=== PATIENT | female | born 1995 | race African-American/Black ===

== ENCOUNTER 2023-11-19 11:19 | Emergency (ER) | payer SELFPAY ==
[2023-11-19] MEDS: Ketorolac 60 MG/2 ML SDV IM ONE (12:19)
== END 2023-11-19 12:30 | disposition home or self-care (01) ==
LOC: JD.ED 11:19
DX: M54.41 Lumbago with sciatica, right side (principal)
CPT/HCPCS: 81025; 96372; 99284; J1885; 99283

== ENCOUNTER 2023-12-09 15:58 | Emergency (ER) | payer BC ==
[2023-12-09] MEDS ORDERED: Iopamidol 755 Mg/ML 100 ML Bottle IVPUSH ONE (17:26)
[2023-12-09 17:45] LABS: BASOPHILS PERCENT AUTO 0.4 % (0.0-1.0); EOSINOPHILS ABSOLUTE AUTO 0.1 K/mm3 (0.0-0.4); EOSINOPHILS PERCENT AUTO 1.3 % (0.0-6.0); HEMOGLOBIN 8.2 gm/dl (12.0-16.0); IMMATURE GRAN ABSOLUTE AUTO 0.03 K/mm3 (0.00-0.05); IMMATURE GRAN PERCENT AUTO 0.4 % (0.0-0.4); LYMPHOCYTES ABSOLUTE AUTO 1.9 K/mm3 (1.0-4.8); LYMPHOCYTES PERCENT AUTO 23.9 % (24.0-44.0); MEAN CORPUSCULAR HEMOGLOBIN 19.5 pg (28.0-32.0); MEAN CORPUSCULAR HGB CONC 29.3 g/dl (32.0-36.0); MEAN CORPUSCULAR VOLUME 66.7 fl (83.0-99.0); MEAN PLATELET VOLUME 10.3 fl (9.4-12.3); MONOCYTES ABSOLUTE AUTO 0.5 K/mm3 (0.0-0.8); MONOCYTES PERCENT AUTO 6.1 % (0.0-8.0); NEUTROPHILS ABSOLUTE AUTO 5.3 K/mm3 (1.8-7.7); NEUTROPHILS PERCENT AUTO 67.9 % (41.0-71.0); PLATELET COUNT,PLT 246 K/mm3 (150-400); WHITE BLOOD CELL COUNT,WBC 7.86 K/mm3 (3.9-11.3)
[2023-12-09] MEDS: Sodium Chloride 0.9% 1,000 ML IV ONE (17:53)
[2023-12-09] MEDS: Sodium Chloride 0.9% 10 ML Syringe FLUSH PRN (17:54)
[2023-12-09 18:06] LABS: A/G RATIO 0.9 (1-2); ALBUMIN 3.3 g/dl (3.4-5.0); ANION GAP 11.7 (5-15); BILIRUBIN TOTAL 0.3 mg/dL (0.2-1.0); BUN/CREATININE RATIO 11.4 (14-18); CREATININE 0.7 mg/dL (0.55-1.02); EST CRCL DRUG DOSING (CG) 98.98 mL/min; POTASSIUM,K 3.7 mEq/L (3.5-5.1); PROTEIN TOTAL,TP 7.1 g/dl (6.4-8.2)
[2023-12-09] MEDS: Iopamidol 612 MG/ML 30 ML SDV IVPUSH ONE (18:23)
[2023-12-09 19:00] LABS: APPEARANCE,URINE CLEAR (Clear); BILIRUBIN,URINE NEGATIVE (Negative); COLOR,URINE YELLOW (Yellow); GLUCOSE,URINE NEGATIVE (Negative); KETONES,URINE NEGATIVE (Negative); LEUKOCYTE ESTERASE,URINE NEGATIVE (Negative); NITRITE,URINE NEGATIVE (Negative); OCCULT BLOOD,URINE NEGATIVE (Negative); PROTEIN,URINE NEGATIVE (Negative); UROBILINOGEN,URINE 0.2 (0.2-1.0)
== END 2023-12-09 20:10 | disposition home or self-care (01) ==
LOC: JD.ED 15:58
DX: R10.10 Upper abdominal pain, unspecified (principal)
CPT/HCPCS: 36415; 74177; 74177-26; 80053; 81003; 83690; 84703; 85025; 99284; J3490; J7030; Q9967

== ENCOUNTER 2024-02-25 05:44 | Emergency (ER) | payer SELFPAY | END 2024-02-25 07:54 | disposition home or self-care (01) | LOC: JD.ED 05:44 | DX: J06.9 Acute upper respiratory infection, unspecified (principal); Z79.899 Other long term (current) drug therapy | CPT/HCPCS: 71045; 71045-26; 87428-QW; 99285 ==